=== PATIENT | female | born 1975 | race Two or more races ===

== ENCOUNTER → 2024-04-26 | Outpatient (CLI) | payer OTHER ==
[2024-04-26 08:57] LABS: Urine Bacteria None Seen /hpf (None Seen)
[2024-04-26 09:21] LABS: Basophils # (auto) 0.1 10 ^3/uL (0-0.2); Basophils % (auto) 0.8 % (0.0-2.0); Eosinophils # (auto) 0.2 10 ^3/uL (0-0.8); Eosinophils % (auto) 2.1 % (0.0-7.0); Hematocrit 43.9 % (36.0-46.0); Hemoglobin 14.9 g/dL (12.2-16.2); Lymphocytes # (auto) 3.2 10 ^3/uL (0.4-5.4); Lymphocytes % (auto) 39.1 % (10.0-50.0); Mean Corpuscular Hemoglobin 30.9 pg (28.0-32.0); Mean Corpuscular Hgb Conc. 33.9 g/dL (32.0-36.0); Monocytes # (auto) 0.4 10 ^3/uL (0-1.3); Monocytes % (auto) 5.3 % (0.0-12.0); Neutrophils # (auto) 4.3 10 ^3/uL (1.6-8.6); Neutrophils % (auto) 52.7 % (37.0-80.0); Nucleated Red Blood Cells % 0.1 %; Platelet Count (auto) 334 10^3/uL (140-450); Red Blood Cells 4.83 10^6/uL (4.0-5.20); Red Cell Distribution Width 11.9 % (11.8-14.3); White Blood Cell 8.2 10^3/uL (4.4-10.8)
[2024-04-26 09:33] LABS: Urine Blood Negative /uL (Negative); Urine Clarity Clear (Clear); Urine Color Yellow (Yellow); Urine Protein, UAD Negative (Negative); Urine Specific Gravity 1.042 (1.001-1.035); Urine Urobilinogen Normal (Negative); Urine WBC 1 /hpf (0 - 5); Urine pH 5.5 (5.0-9.0)
[2024-04-26 09:48] LABS: Alanine Aminotransferase 20 U/L (7-40); Albumin 4.9 g/dL (3.2-4.8); Alkaline Phosphatase 104 U/L (46-116); Anion Gap 9 (5-15); Aspartate Aminotransferase 11 U/L (13-40); BUN/Creatinine Ratio 20.3 (10.0-20.0); Blood Urea Nitrogen 14 mg/dL (9-23); Calcium 10.3 mg/dL (8.7-10.4); Carbon Dioxide 28 mmol/L (20-31); Chloride 102 mmol/L (98-107); Cholesterol 137 mg/dL (< 200); Glucose 125 mg/dL (74-106); HDL Cholesterol 44 mg/dL (40-59); LDL Cholesterol 76 mg/dL (< 100); Potassium 3.4 mmol/L (3.5-5.1); Sodium 139 mmol/L (136-145); Triglycerides 93 mg/dL (< 150)
[2024-04-26 09:49] LABS: Bilirubin, Total 0.8 mg/dL (0.2-1.0); Total Protein 7.9 g/dL (5.7-8.2)
[2024-04-26 10:28] LABS: Creatinine, Urine 112.58 mg/dL (30.0-125.0)
[2024-04-27 12:07] LABS: RPR Non Reactive (Non Reactive)
== END | disposition home or self-care (01) ==
LOC: LAB 08:31
DX: Z00.01 Encounter for general adult medical examination with abnormal findings (principal); I10 Essential (primary) hypertension; E11.9 Type 2 diabetes mellitus without complications
CPT/HCPCS: 36415; 80053; 80061; 81001; 82043; 82306; 82570; 82607; 83036; 84443; 85025; 86592; 86703; 86704; 86706; 86708; 86803; 87340

== ENCOUNTER → 2024-11-05 | Outpatient (CLI) | payer OTHER ==
[2024-11-05 09:12] LABS: Urine Bacteria None Seen /hpf (None Seen)
[2024-11-05 09:43] LABS: Urine Blood Negative /uL (Negative); Urine Clarity Clear (Clear); Urine Color Light-Yellow (Yellow); Urine Mucus FEW (None Seen); Urine Protein, UAD Negative (Negative); Urine Specific Gravity 1.043 (1.001-1.035); Urine Squamous Epithelial Cell FEW /hpf (<5); Urine Urobilinogen Normal (Negative); Urine WBC < 1 /HPF (0-5); Urine pH 5.5 (5.0-9.0)
[2024-11-05 09:52] LABS: Basophils # (auto) 0 10 ^3/uL (0-0.2); Basophils % (auto) 0.6 % (0.0-2.0); Eosinophils # (auto) 0.2 10 ^3/uL (0-0.8); Hematocrit 41.5 % (36.0-46.0); Hemoglobin 14.2 g/dL (12.2-16.2); Lymphocytes # (auto) 2.6 10 ^3/uL (0.4-5.4); Lymphocytes % (auto) 33.9 % (10.0-50.0); Mean Corpuscular Hemoglobin 30.8 pg (28.0-32.0); Mean Corpuscular Hgb Conc. 34.1 g/dL (32.0-36.0); Mean Corpuscular Volume 90.2 fL (80.0-100.0); Monocytes # (auto) 0.6 10 ^3/uL (0-1.3); Monocytes % (auto) 7.3 % (0.0-12.0); Neutrophils # (auto) 4.2 10 ^3/uL (1.6-8.6); Neutrophils % (auto) 55.2 % (37.0-80.0); Nucleated Red Blood Cells % 0.1 %; Platelet Count (auto) 313 10^3/uL (140-450); Red Cell Distribution Width 13.2 % (11.8-14.3); White Blood Cell 7.7 10^3/uL (4.4-10.8)
[2024-11-05 10:33] LABS: Creatinine, Urine 74.86 mg/dL (30.0-125.0)
[2024-11-05 10:37] LABS: Alanine Aminotransferase 29 U/L (7-40); Albumin 4.6 g/dL (3.2-4.8); Alkaline Phosphatase 95 U/L (46-116); Anion Gap 7 (5-15); BUN/Creatinine Ratio 18.2 (10.0-20.0); Bilirubin, Total 0.7 mg/dL (0.2-1.0); Blood Urea Nitrogen 10 mg/dL (9-23); Calcium 9.9 mg/dL (8.7-10.4); Carbon Dioxide 28 mmol/L (20-31); Chloride 106 mmol/L (98-107); Cholesterol 134 mg/dL (< 200); HDL Cholesterol 53 mg/dL (40-59); LDL Cholesterol 68 mg/dL (< 100); Potassium 4.3 mmol/L (3.5-5.1); Sodium 141 mmol/L (136-145); Total Protein 7.2 g/dL (5.7-8.2); Triglycerides 95 mg/dL (< 150)
[2024-11-05 10:39] LABS: Aspartate Aminotransferase 13 U/L (13-40); Glucose 142 mg/dL (74-106)
== END | disposition home or self-care (01) ==
LOC: LAB 09:01
PROVIDERS: ATTEND Nurse Practitioner Family
DX: I10 Essential (primary) hypertension (principal); E11.9 Type 2 diabetes mellitus without complications; E55.9 Vitamin D deficiency, unspecified; E78.5 Hyperlipidemia, unspecified
CPT/HCPCS: 36415; 80053; 80061; 81001; 82043; 82306; 82570; 83036; 85025; 87340